=== PATIENT | female | born 1980 | race Hispanic/Latino ===

== ENCOUNTER 2018-05-10 05:30 | Inpatient (IN) | payer BC ==
[2018-05-10] MEDS: Lactated Ringer's 1,000 ML IV SCH ×2 (08:20→10:45)
[2018-05-10 08:59] VITALS: BMI 37.8
[2018-05-10] MEDS ORDERED: Promethazine HCl 25 MG/ML VIAL IM PRN (09:00)
[2018-05-10] MEDS ORDERED: Docusate 100 MG CAP PO PRN (09:00)
[2018-05-10] MEDS ORDERED: Lidocaine 1% (PF) 30 ML VIAL SC PRN (09:00)
[2018-05-10] MEDS ORDERED: Ibuprofen 800 MG TAB PO PRN (09:00)
[2018-05-10] MEDS ORDERED: NS / Oxytocin 40 units/1000ml 1,000 ML IV PRN (09:00)
[2018-05-10] MEDS ORDERED: Butorphanol Tartrate 1 MG/ML VIAL SLOW IVP PRN (09:00)
[2018-05-10] MEDS ORDERED: NS w/ Oxytocin 10 units 500 ML IV SCH ×2 (09:00)
[2018-05-10] MEDS ORDERED: HYDROcodone/Acetaminophen 5/325 mg Tablet PO PRN ×2 (09:00)
[2018-05-10] MEDS ORDERED: Ondansetron HCl/PF 4 MG/2 ML Vial IVP PRN (09:00)
[2018-05-10] MEDS ORDERED: Meperidine HCl/PF 25 MG/ML VIAL IM/IV PRN (09:00)
[2018-05-10] MEDS: Labetalol HCl 100 MG/20 ML VIAL ONE (09:04)
[2018-05-10] MEDS ORDERED: NS / Oxytocin 40 units/1000ml 1,000 ML ONE (09:04)
[2018-05-10 09:11] LABS: Hemoglobin 10.9 g/dL (12.0-16.0); Mean Corpuscular HGB CONC 32.7 g/dL (32.0-36.0); Mean Corpuscular Hemoglobin 24.6 pg (27.0-31.0); Mean Corpuscular Volume 75.2 fL (78.0-98.0); Mean Platelet Volume 12.1 fL (7.4-10.4); Platelet Count 164 thou/uL (130-400); RBC Distribution Width 16.2 % (11.5-14.5); Red Blood Cell (RBC) Count 4.44 mill/uL (4.20-5.40); White Blood Cell (WBC) Count 8.4 thou/uL (4.8-10.8)
[2018-05-10] MEDS ORDERED: Magnesium Sulfate 20 gm/500 ml 20 GM/500 ML BAG ONE (09:13)
[2018-05-10] MEDS ORDERED: Labetalol HCl 100 MG/20 ML VIAL SLOW IVP PRN (09:24)
[2018-05-10] MEDS ORDERED: Calcium Gluc 4.6 MEQ/10 ML (100 MG/ML) SLOW IVP PRN (09:25)
--- NOTE | 2018-05-10 09:28 | PDOC.LDHP ---
Labor and Delivery H&P Chief complaint: scheduled induction HPI: Pt is a 37yo @ 37 weeks here for scheduled IOL for mild preeclampsia with severe range BP noted on admission. Pt reports normal to mild range BP Thursday but did not check BP yesterday. No RAMIREZ or RUQ pain. Current gestational age (weeks): 37 Due date: 05/31/18 Dating criteria: last menstrual period Grav: 2 Para: 1 OB History Details: x 1 2014 Current complications: gestational diabetes (on glyburide), preeclampsia with severe features Abnormal US findings: No Current medications: pre- vitamins, other (glyburide 2.5mg qam) Previous surgical history: none Allergies/Adverse Reactions: Allergies Allergy/AdvReac Type Severity Reaction Status Date / Time No Known Allergies Allergy Verified 05/10/18 08:56 Social history: none - Physical Exam Abnormal vital signs: BP on intake 170-190/80s General: NAD Heart: RRR Lungs: CTAB Abdomen: gravid Extremeties: trace edema FHT: category 1 - Vaginal Exam cm dilated: 3 Effacement: 50% Station: -2 - OB Labs Blood type: A RH: positive Antibody Screen: negative HIV: negative RPR: negative HEPSAg: negative 1 hour GCT: positive 3 hour GTT: positive GBS: negative Urine drug screen: not done Rubella: immune - Assessment L&D Assessment: medically indicated induction (for severe preeclampsia) - Plan Plan: admit to L&D, informed consent obtained, magnesium for seizure prophylaxis , anesthesia consult for pain management -: A/P: 37yo @ 37.0 weeks here for scheduled IOL for preeclampsia that was previously was dx as without severe features but with severe range BP today on admission. Labetalol has been ordered and given as well as magnesium for seizure prophylaxis. Indications for magnesium reviewed, pt agrees to plan of care. AROM with clear fluid noted on admit exam, pitocin ordered for IOL.
[2018-05-10] MEDS ORDERED: Magnesium Sulfate 20 gm/500 ml 20 GM/500 ML BAG IVPB SCH (09:30)
[2018-05-10] MEDS ORDERED: Magnesium Sulfate 20 GM/WATER 500 ML BAG IVPB SCH (09:30)
[2018-05-10 09:45] LABS: HBSAg Index 0.24 S/CO (0-0.99); Hep B Surf Ag Non-Reactive S/CO (NonReactive)
[2018-05-10 09:48] LABS: ALT (SGPT) 13 U/L (8-55); AST (SGOT) 11 U/L (5-34); Albumin 3.2 g/dL (3.5-5.0); Alkaline Phosphatase 103 U/L (40-150); Anion Gap 14 mmol/L (10-20); BUN (Urea Nitrogen) 8 mg/dL (7.0-18.7); Bilirubin, Total 0.3 mg/dL (0.2-1.2); Calc. Creatinine Clearance 205 mL/min (70-130); Calcium 8.9 mg/dL (7.8-10.44); Carbon Dioxide 18 mmol/L (22-29); Chloride 109 mmol/L (98-107); Estimated GFR-MDRD Greater than 90; Globulin 2.8 g/dL (2.4-3.5); Glucose 81 mg/dL (70-105); Potassium 4.1 mmol/L (3.5-5.1); Sodium 137 mmol/L (136-145); Syphilis Antibody Nonreactive (Nonreactive); Syphilis Antibody Index 0.04 S/CO (<1.00 Non-Reactive)
[2018-05-10] MEDS ORDERED: Fentanyl 4 mcg/Bup 0.1% Cadd 100 ML ONE ×2 (10:03→17:59)
[2018-05-10] MEDS: Fentanyl 4 mcg/Bupivacaine 0.1% Cassette 100 ML EPIDURAL SCH ×2 (10:30→18:53)
[2018-05-10] MEDS ORDERED: Lactated Ringer's 500 ML IV PRN (10:34)
[2018-05-10] MEDS ORDERED: Acetaminophen 325 MG TAB PO PRN (10:34)
[2018-05-10] MEDS ORDERED: Naloxone HCl 0.4 mg/ml Vial IVP PRN ×2 (10:34)
[2018-05-10] MEDS ORDERED: Eucerin (Mineral Oil/Petrolatum,White) 30 gm Jar TOP PRN (10:34)
[2018-05-10] MEDS ORDERED: ePHEDrine/0.9% NaCl/PF SYRINGE 50 mg/10 ml SLOW IVP PRN (10:34)
[2018-05-10] MEDS ORDERED: Communication Order-Pharmacy FS SCH (10:45)
--- NOTE | 2018-05-10 15:42 | PDOC.LDPN ---
Labor & Delivery Progress Note - Subjective Subjective: comfortable - Objective Vital signs reviewed and normal: yes General: NAD, resting Dilation: 6 Effacement: 90% Station: -1 FHT: acceleration absent, variable decelerations, variability present [place] contractions every: 3 IUPC placed: yes (for amnioinfusion) FSE placed: yes (at last exam) Resuscitative measures: amniofusion, maternal oxygen, maternal position change - Assessment (1) Severe pre-eclampsia Code(s): O14.10 - SEVERE PRE-ECLAMPSIA, UNSPECIFIED TRIMESTER Current Visit: Yes Status: Acute (2) White classification A2 gestational diabetes mellitus Code(s): O24.419 - GESTATIONAL DIABETES MELLITUS IN , UNSP CONTROL Current Visit: Yes Status: Acute Plan: resuscitative measures -: A/P: IOL for severe PIH, recurrent variables that have improved with amnioinfusion and position change. Will continue to monitor closely, continue magnesium for seizure prophylaxis.
--- NOTE | 2018-05-10 18:34 | PDOC.OPDEL ---
OB Operative/Delivery Note Delivery Dr/Surgeon: Ashvin Pre-Delivery Diagnosis: medically indicated induction (severe PIH) Weeks gestation: 37 Anesthesia: epidural - Findings A Sex: female - 1 min: 8 - 5 min: 9 - Additional Findings/Plan Placenta delivered: spontaneous Repaired Obstetrical Laceration: vaginal (one fig 8 stitch placed at introitus) Compilations/Other Findings: magnesium recovery for PP for seizure prophylaxis Post delivery plan: recovery in LICU
[2018-05-11] MEDS ORDERED: Lanolin Ointment 7 GM TUBE TOP PRN (01:57)
[2018-05-11] MEDS ORDERED: Calcium Gluconate 4.6 MEQ in Sodium Chloride 0.9% 100 ML IVPB PRN (01:57)
[2018-05-11] MEDS ORDERED: HYDROcodone/Acetaminophen 5/325 mg Tablet PO PRN ×2 (01:57)
[2018-05-11] MEDS ORDERED: Magnesium Sulfate 20 gm/500 ml 20 GM/500 ML BAG IVPB SCH (01:57)
[2018-05-11] MEDS ORDERED: Milk Of Magnesia 30 ML UDCUP PO PRN (01:57)
[2018-05-11] MEDS ORDERED: Preparation H Ointment 28 GM TUBE PR PRN (01:57)
[2018-05-11] MEDS ORDERED: NS / Oxytocin 40 units/1000ml 1,000 ML IV SCH (01:57)
[2018-05-11] MEDS ORDERED: diphenhydrAMINE 25 MG CAP PO PRN (01:57)
[2018-05-11] MEDS ORDERED: Ondansetron HCl/PF 4 MG/2 ML Vial IVP PRN (01:57)
[2018-05-11] MEDS ORDERED: Benzocaine/Menthol 20-0.5% 60 ML CAN TOP PRN (01:57)
[2018-05-11] MEDS ORDERED: Bisacodyl 10 MG SUPP PR PRN (01:57)
[2018-05-11] MEDS: Ibuprofen 800 MG TAB PO SCH ×4 (02:47→22:41)
[2018-05-11] MEDS: Docusate Calcium (SURFAK) 240 MG CAP PO SCH ×3 (02:47→22:40)
[2018-05-11 05:25] LABS: Hemoglobin 9.7 g/dL (12.0-16.0); Mean Corpuscular HGB CONC 31.7 g/dL (32.0-36.0); Mean Corpuscular Volume 75.7 fL (78.0-98.0); Mean Platelet Volume 11.7 fL (7.4-10.4); Platelet Count 156 thou/uL (130-400); RBC Distribution Width 16.2 % (11.5-14.5); Red Blood Cell (RBC) Count 4.04 mill/uL (4.20-5.40); White Blood Cell (WBC) Count 12.3 thou/uL (4.8-10.8)
[2018-05-11] MEDS: Ferrous Sulfate 325 MG TAB PO SCH ×2 (08:28→22:40)
[2018-05-11] MEDS: Prenatal Vitamin 1 TAB PO SCH (08:28)
[2018-05-11] MEDS ORDERED: Adacel (T-DAP) 0.5 ML VIAL IM ONE (09:00)
--- NOTE | 2018-05-11 14:10 | PDOC.PP ---
Post Progress Note Post Day #: 1 Subjective: on mag in L and D, mild RAMIREZ she thinks is from not having coffee yet, breast feeding PO intake tolerated: yes Flatus: yes Ambulation: yes Weight Weight 220 lb - Physical Examination General: NAD (AM BP reviewed 130-140/70-90s) Respiratory: clear to auscultation bilaterally Abdominal: no distention Fundus firm & at: below umb Extremities: negative homans (B) Skin: no rash Neurological: no gross focal deficits Psychiatric: A&Ox3, normal affect Result Diagrams: 05/11/18 05:05 05/10/18 09:00 Additional Labs: Post Labs Blood Type A POSITIVE 05/10/18 09:00 Hep Bs Antigen Non-Reactive S/CO (NonReactive) 05/10/18 09:00 (1) Severe pre-eclampsia Code(s): O14.10 - SEVERE PRE-ECLAMPSIA, UNSPECIFIED TRIMESTER Status: Acute (2) White classification A2 gestational diabetes mellitus Code(s): O24.419 - GESTATIONAL DIABETES MELLITUS IN , UNSP CONTROL Status: Acute - Assessment/Plan A/P: PPD 1 sp IOL and for severe PIH, on magnesium through 24hr PP planned.
[2018-05-11] MEDS ORDERED: Labetalol HCl 100 MG/20 ML VIAL SLOW IVP PRN (15:05)
[2018-05-11] MEDS: Labetalol HCl 100 MG/20 ML VIAL ONE (15:13)
[2018-05-12] MEDS: Ibuprofen 800 MG TAB PO SCH ×3 (05:46→21:16)
[2018-05-12] MEDS ORDERED: Amlodipine 5 MG TAB PO SCH ×2 (09:00→17:45)
[2018-05-12] MEDS: Prenatal Vitamin 1 TAB PO SCH (09:08)
[2018-05-12] MEDS: Docusate Calcium (SURFAK) 240 MG CAP PO SCH ×2 (09:08→21:16)
[2018-05-12] MEDS: Ferrous Sulfate 325 MG TAB PO SCH ×2 (09:11→17:32)
[2018-05-12] MEDS: Lactated Ringer's 1,000 ML IV SCH (09:36)
--- NOTE | 2018-05-12 11:58 | PDOC.PP ---
Post Progress Note Post Day #: 2 Subjective: doing well, nursing, RAMIREZ resolved PO intake tolerated: yes Flatus: yes Ambulation: yes Vital Signs (12 hours) Temp Pulse Resp BP Pulse Ox 05/12/18 11:52 98.1 F 85 18 162/79 H 05/12/18 10:59 86 145/78 H 05/12/18 09:08 75 145/80 H 05/12/18 08:12 98.0 F 89 22 H 175/88 H 99 05/12/18 04:55 98.3 F 75 18 143/76 H 05/12/18 00:30 98.3 F 89 20 136/67 Weight Weight 220 lb - Physical Examination General: NAD Respiratory: non-labored breathing Abdominal: no distention Fundus firm & at: below umb Extremities: negative homans (B) Neurological: no gross focal deficits Psychiatric: A&Ox3, normal affect Result Diagrams: 05/11/18 05:05 05/10/18 09:00 Additional Labs: Post Labs Blood Type A POSITIVE 05/10/18 09:00 Hep Bs Antigen Non-Reactive S/CO (NonReactive) 05/10/18 09:00 (1) Severe pre-eclampsia Code(s): O14.10 - SEVERE PRE-ECLAMPSIA, UNSPECIFIED TRIMESTER Status: Acute (2) White classification A2 gestational diabetes mellitus Code(s): O24.419 - GESTATIONAL DIABETES MELLITUS IN , UNSP CONTROL Status: Acute - Assessment/Plan PPD2 w severe PIH, BP mild to severe range off magnesium, will start Norvasc 5mg and monitor BP closely today, likely DC tomorrow.
[2018-05-12] MEDS ORDERED: Sodium Chloride 0.9% 10 ML ONE (17:53)
[2018-05-13] MEDS: Ibuprofen 800 MG TAB PO SCH ×2 (05:44→14:14)
[2018-05-13] MEDS: Ferrous Sulfate 325 MG TAB PO SCH (08:44)
[2018-05-13] MEDS: Prenatal Vitamin 1 TAB PO SCH (08:44)
[2018-05-13] MEDS: Docusate Calcium (SURFAK) 240 MG CAP PO SCH (08:44)
[2018-05-13] MEDS ORDERED: Amlodipine 10 MG TAB PO SCH (09:00)
--- NOTE | 2018-05-13 11:55 | PDOC.PP ---
Post Progress Note Post Day #: 3 Subjective: doing well, feels great, breast feeding well, no RAMIREZ, decreased swelling, no RUQ pain, pt reports feeling anxious yesterday as she was worried about older child. PO intake tolerated: yes Flatus: yes Ambulation: yes Vital Signs (12 hours) Temp Pulse Resp BP BP BP Pulse Ox 05/13/18 08:43 65 141/72 H 05/13/18 08:24 98.1 F 65 16 128/84 100 05/13/18 07:48 98.1 F 86 18 141/72 H 100 05/13/18 05:30 142/82 H 05/13/18 00:50 154/71 H Weight Weight 220 lb - Physical Examination General: NAD Respiratory: non-labored breathing Abdominal: no distention Skin: no rash Neurological: no gross focal deficits Psychiatric: A&Ox3, normal affect Result Diagrams: 05/11/18 05:05 05/10/18 09:00 Additional Labs: Post Labs Blood Type A POSITIVE 05/10/18 09:00 Hep Bs Antigen Non-Reactive S/CO (NonReactive) 05/10/18 09:00 (1) Severe pre-eclampsia Code(s): O14.10 - SEVERE PRE-ECLAMPSIA, UNSPECIFIED TRIMESTER Status: Acute (2) White classification A2 gestational diabetes mellitus Code(s): O24.419 - GESTATIONAL DIABETES MELLITUS IN , UNSP CONTROL Status: Acute - Assessment/Plan PPD3 doing well, no concerns. Discussed BP appears to be well controlled w Norvasc. Pt has a BP cuff at home and agrees to take them at home over the next 24-48 hours and notify for sustained BP > 160/100. Plan to DC today.
[2018-05-13 13:03] VITALS: TEMP 98.4
[2018-05-13 14:12] VITALS: BP 161/94
== END 2018-05-13 14:45 | disposition home or self-care (01) | DRG 807 ==
LOC: L&D 07:52 → 3SW 05-11 18:02
PROVIDERS: ADMIT Obstetrics & Gynecology; ATTEND Obstetrics & Gynecology
PROC: 10E0XZZ Delivery of Products of Conception, External Approach (ICD-10-PCS; principal; 2018-05-10)
PROC: 4A0HXCZ Measurement of Products of Conception, Cardiac Rate, External Approach (ICD-10-PCS; 2018-05-10)
PROC: 0UQGXZZ Repair Vagina, External Approach (ICD-10-PCS; 2018-05-10)
PROC: 3E033VJ Introduction of Other Hormone into Peripheral Vein, Percutaneous Approach (ICD-10-PCS; 2018-05-10)
PROC: 10907ZC Drainage of Amniotic Fluid, Therapeutic from Products of Conception, Via Natural or Artificial Opening (ICD-10-PCS; 2018-05-10)
DX: O14.14 Severe pre-eclampsia complicating childbirth (principal); Z37.0 Single live birth; O24.425 Gestational diabetes mellitus in childbirth, controlled by oral hypoglycemic drugs; O71.4 Obstetric high vaginal laceration alone; Z3A.37 37 weeks gestation of pregnancy; O76 Abnormality in fetal heart rate and rhythm complicating labor and delivery
CPT/HCPCS: 36415; 36416; 51702; 80053; 81003; 83735; 85027; 86780; 86850; 86900; 86901; 87340; J3475

== ENCOUNTER 2024-09-09 07:57 | Outpatient (CLI) | payer BC | END 2024-09-09 07:58 | disposition home or self-care (01) | LOC: BICMAMMO 07:57 | PROVIDERS: ATTEND Nurse Practitioner Family | DX: Z12.31 Encounter for screening mammogram for malignant neoplasm of breast (principal) | CPT/HCPCS: 77063; 77067 ==